=== PATIENT | male | born 1985 | race Caucasian/White ===

== ENCOUNTER 2021-02-06 17:28 | Inpatient (IN) | payer OTHER, SELFPAY ==
[2021-02-06] VITALS (9 sets, daily range): BP systolic 117–141; BP diastolic 77–82; PULSE 72–82; RESP 17–25; TEMP 36.7; O2SAT 92–97; BMI 32.8
--- NOTE | 2021-02-06 20:39 | RT ---
Paged by KELLY Cardoso for pt's arrival to room 231. Upon arrival, pt was on 10 LPM NRB and SpO2 98%, RR mid 20s. BS clear ANU, faint crackles in LLL, diminished RLL and RML. Pt's WOB is labored with exertion. Placed pt on 15 LPM HFNC, SpO2 92%-96%m RR still mid 20s, pt is tolerating change. Educated pt about deep breathing techniques and proning as much as possible. Instructed pt on how to use IS as well. Pt has no pulmonary hx, does not use MDIs/SVNs, does not use CPAP/BiPAP/O2 at home. Recommending O2 therapy as needed and set a SpO2 goal.
[2021-02-06 22:17] LABS: Add Manual Diff / Slide Review NO; Basophils Absolute Auto 0 /uL (0-100); Basophils Percent Auto 0.2 % (0-2); Eosinophils Absolute Auto 0 /uL (0-450); Hematocrit 42.6 % (41-53); Hemoglobin 15.3 g/dL (13.5-17.5); Lymphocytes Absolute Auto 500 /uL (1100-4500); Lymphocytes Percent Auto 5.3 % (25-40); Mean Corpuscular HGB Conc 35.8 % (30-36); Mean Corpuscular Hemoglobin 31.6 PG (26-34); Mean Corpuscular Volume 88.1 fL (80-100); Monocytes Absolute Auto 300 /uL (0-900); Monocytes Percent Auto 3.1 % (3-14); Neutrophils Absolute Auto 8300 /uL (1500-7000); Neutrophils Percent Auto 91.4 % (50-75); Platelet Count 227 X10^3/uL (150-400); Red Blood Cell Count 4.83 X10^6/uL (4.5-5.9); Red Cell Distribution Width 13.3 % (11.6-14.8); White Blood Cell Count 9.1 X10^3/uL (4.5-11.0)
[2021-02-06 22:29] LABS: Lactate Dehydrogenase 1920 U/L (313-618)
[2021-02-06 22:30] LABS: BUN Creatinine Ratio 14.3 (6-22); Blood Urea Nitrogen 15 mg/dL (9-20); Calcium 8.8 mg/dL (8.4-10.2); Carbon Dioxide 36 mmol/L (22-32); Chloride 92 mmol/L (98-107); Estimated Glomerular Filt Rate > 60.0 mL/min (>60); Glucose 134 mg/dL (70-100); HEMOLYSIS < 15 (0-50); Magnesium 2.8 mg/dL (1.6-2.3); Potassium 4.9 mmol/L (3.4-5.1); Sodium 134 mmol/L (137-145)
--- NOTE | 2021-02-06 22:42 | PC.NURSE ---
Addendum entered by Madeline Rock R.N. 02/07/21 06:22: 0600- Patient will have his bring in his medication for CML. Patient has proned during the night and has intermitted night sweats. Patient is cooperative with care. Will monitor. Original Note: 1914- Patient arrived via ambulance to room 231. Patient on 100% NRB. Saturations 92-95%. Patient respirations in the mid 20's. No distress noted at this time. Patient states he is intermittedly sweaty. Report of temperature at previous hospital. Patient oriented to the room, call light, bed controls and instructed to call for assist to the bathroom. Bed alarm engaged. Patient placed on 15 liters high flow per respiratory therapy. Will monitor closely.
[2021-02-07] VITALS (27 sets, daily range): BP systolic 114–135; BP diastolic 64–88; PULSE 59–84; RESP 0–39; TEMP 35.9–37; O2SAT 85–99
--- NOTE | 2021-02-07 00:05 | P.HP_ITS ---
History of Present Illness History of Present Illness Date Patient Seen: 02/06/21 Time Patient Seen: 21:00 Chief complaint: COVID + Narrative: Jeffrey Miranda is a 35 y.o. unvaccinated male with chronic lymphocytic leukemia is a direct transfer from [facility] for further management of COVID- 19 Pneumonia. He initially presented to their ED due to fatigue and a cough. Per the nursing notes from [facility], he has had symptoms since 01/27 and test ed positive on Sunday 02/04. He stated the exposure occurred when on of the in- home day care's children was positive for COVID1-19. All of his family tested positive for it and had mild symptoms. 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 He continues to have a sense of taste and smell, but has been nauseated and not eating much since being sick. Denies vomiting, dysuria, or constipation though did endorse having diarrhea to the ED staff at [facility]. He actually denies shortness of breath, just a cough and profound fatigue. States he is interested in the vaccine and is advised to obtain it once he tests negative. States takes Bosulif 400 mg po daily and stated to [facility] staff his CLL was in remission. At [facility], he presented with 76% on room air and was placed on a 15% non-rebreather mask. Due to an elevated D-dimer, he underwent CT angio scanning at [facility] of which PE was ruled out. Read also indicated mediastinal and hilar lymphadenopathy which could be reactive or neoplastic. Current vital signs are temperature 96.7?, blood pressure 127/82, heart rate 76, respiratory rate 16, oxygen saturation 96% on 15 L, he weighs 113 kg with a BMI of 32.8. CBC is unremarkable, is lymphopenic with a count of 500, sodium 134, chloride 92, bicarb 36, glucose 134, magnesium 2.8, lactate dehydrogenase is 1920, MRSA is negative. Patient History Medical History CLL (chronic lymphocytic leukemia) Family & Social History Family history unavailable: No (Great uncle with ALL, parents alive and well) Social History: household members spouse Prior Living Arrangements House Safety & Behavioral: Feels Safe in Current Yes Environment Been Physically Hurt or No Threatened By a Person Suicidal Ideation Description None Suicide Plan Description No Plan Tobacco & Substance use: Smoking Status Never smoker alcohol intake current alcohol intake frequency Beer once a week. Substance Use Type does not use Review of Systems Review of Systems ROS: Yes All systems reviewed with the patient and are negative except as oth erwise documented Exam Vital Signs (past 8 hours): - 02/06/21 19:15 02/06/21 19:44 02/06/21 21:00 Temperature 98.0 F Pulse Rate 82 79 Respiratory Rate 19 25 H Blood Pressure 141/82 H Pulse Oximetry 97 92 95 02/06/21 21:30 02/06/21 22:00 Temperature Pulse Rate 72 77 Respiratory Rate Blood Pressure 117/77 Pulse Oximetry 96 96 Oxygen Delivery Method High Flow Nasal Cannula Oxygen Flow Rate 15 Narrative Exam Narrative: Gen: Alert, oriented, well-developed 35 y.o. male, NAD HEENT: normocephalic, atraumatic, conjunctiva clear, sclera non-icteric, oral mucosa pink and moist Neck: supple, full ROM, no JVD, trachea is midline Resp: diminished lung sounds on the right, left lung CTA, tachypnic CV: RRR, no murmur or rubs Abd: soft, non-tender, normoactive BTs Skin: no lesions or rashes, dry and intact Neuro: Alert and oriented X 4 w/no focal deficits. Speech clear and coherent. Extremities: moves all 4 extremities, is ambulatory, negative Kimebrly?s sign Psyche: normal mood and affect. Objective Labs Result Diagrams: 02/06/21 21:44 02/06/21 21:44 Labs: Laboratory Results - last 24 hr 02/06/21 02/06/21 02/06/21 19:30 21:44 21:44 WBC 9.1 RBC 4.83 Hgb 15.3 Hct 42.6 MCV 88.1 MCH 31.6 MCHC 35.8 RDW 13.3 Plt Count 227 Neut % (Auto) 91.4 H Lymph % (Auto) 5.3 L [place] % (Auto) 3.1 Eos % (Auto) 0.0 L Baso % (Auto) 0.2 Neut # (Auto) 8300 H Lymph # (Auto) 500 L [place] # (Auto) 300 Eos # (Auto) 0 Baso # (Auto) 0 Sodium Cancelled Potassium Cancelled Chloride Cancelled Carbon Dioxide Cancelled BUN Cancelled Creatinine Cancelled Estimated GFR Cancelled BUN/Creatinine Ratio Cancelled Glucose Cancelled Calcium Cancelled Magnesium Cancelled Total Bilirubin Cancelled Conjugated Bilirubin Cancelled Unconjugated Bilirubin Cancelled AST Cancelled ALT Cancelled Alkaline Phosphatase Cancelled Lactate Dehydrogenase 1920 H C-Reactive Protein Cancelled Total Protein Cancelled Albumin Cancelled Globulin Cancelled Albumin/Globulin Ratio Cancelled Nasal Screen MRSA (PCR) Negative for mrsa 02/06/21 21:44 WBC RBC Hgb Hct MCV MCH MCHC RDW Plt Count Neut % (Auto) Lymph % (Auto) [place] % (Auto) Eos % (Auto) Baso % (Auto) Neut # (Auto) Lymph # (Auto) [place] # (Auto) Eos # (Auto) Baso # (Auto) Sodium 134 L Potassium 4.9 Chloride 92 L Carbon Dioxide 36 H BUN 15 Creatinine 1.05 Estimated GFR > 60.0 BUN/Creatinine Ratio 14.3 Glucose 134 H Calcium 8.8 Magnesium 2.8 H Total Bilirubin Conjugated Bilirubin Unconjugated Bilirubin AST ALT Alkaline Phosphatase Lactate Dehydrogenase C-Reactive Protein Total Protein Albumin Globulin Albumin/Globulin Ratio Nasal Screen MRSA (PCR) Assessment & Plan Assessment & Plan narrative: Jeffrey Miranda will be admitted for further treatment of COVID-19 pneumonia. Acute respiratory failure secondary COVID-19 pneumonia, present on admission * Which he was administered IV remdesivir and dexamethasone at [facility] * He will be continued on IV remdesivir and dexamethasone daily * RT to assess patient for oxygen needs Chronic lymphocytic leukemia, stated to be in remission * Continue home dose of Bosulif 400 mg po daily, to bring in in the am VTE Prophylaxis: Wells risk score 5.5 Enoxaparin 40 mg subQ once daily Bilateral SCDs Consider partial therapuetic anticoagulation Patient is admitted to the inpatient service due to the severity of disease, risks of further disease progression and this stay is expected to exceed 2 midnights. FEN: IV fluids: saline lock, diet: General, labs: CBC, C/BMP, liver enzymes, Mag, PT/INR Consultants None Dispo: probable discharge to home Code status: Full Code as discussed with the patient who identifies his as his surrogate and POA. [X] I have utilized all available immediate resources to obtain, update, or review of the patient's current medications COVID-19 COVID-19 status: Positive Result date/Date tested (Pos, Neg/Pending): 02/06/21 Scores Wells' Criteria for PE Clinical signs and symptoms of DVT: Yes PE is #1 Dx or equally likely: No Heart rate > 100: No Immobilization at least 3 days or surg in previous 4 weeks: Yes History of PE or DVT: No Hemoptysis: No Malignancy w/Treatment within 6 months or palliative: Yes Rober' PE Score total: 5.5 Quality VTE Deep Vein Thrombosis/Pulmonary Embolism Present on Admission: No MIPS - DC The patient has current or prior documentation of left ventricular ejection fraction (LVEF) less than 40%, or moderate or severely depressed left ventricular systolic function.: No
[2021-02-07 05:11] LABS: Add Manual Diff / Slide Review NO; Basophils Absolute Auto 100 /uL (0-100); Basophils Percent Auto 1.8 % (0-2); Eosinophils Absolute Auto 0 /uL (0-450); Hematocrit 43.5 % (41-53); Hemoglobin 15.4 g/dL (13.5-17.5); Lymphocytes Absolute Auto 400 /uL (1100-4500); Lymphocytes Percent Auto 5.8 % (25-40); Mean Corpuscular HGB Conc 35.4 % (30-36); Mean Corpuscular Hemoglobin 31.3 PG (26-34); Mean Corpuscular Volume 88.4 fL (80-100); Monocytes Absolute Auto 200 /uL (0-900); Monocytes Percent Auto 3.2 % (3-14); Neutrophils Absolute Auto 6400 /uL (1500-7000); Neutrophils Percent Auto 89.2 % (50-75); Platelet Count 244 X10^3/uL (150-400); Red Blood Cell Count 4.92 X10^6/uL (4.5-5.9); Red Cell Distribution Width 13.6 % (11.6-14.8); White Blood Cell Count 7.1 X10^3/uL (4.5-11.0)
[2021-02-07 05:15] LABS: BUN Creatinine Ratio 17.1 (6-22); Blood Urea Nitrogen 18 mg/dL (9-20); Calcium 8.9 mg/dL (8.4-10.2); Carbon Dioxide 36 mmol/L (22-32); Chloride 94 mmol/L (98-107); Creatine Kinase 1252 U/L (55-170); Estimated Glomerular Filt Rate > 60.0 mL/min (>60); Glucose 133 mg/dL (70-100); HEMOLYSIS 21 (0-50); Sodium 134 mmol/L (137-145)
[2021-02-07 05:16] LABS: Magnesium 2.9 mg/dL (1.6-2.3)
[2021-02-07 05:23] LABS: Potassium 5.2 mmol/L (3.4-5.1)
[2021-02-07 05:31] LABS: Alanine Aminotransferase 86 IU/L (<50); Albumin 3.5 g/dL (3.5-5.0); Albumin Globulin Ratio 1.1 (1.0-2.8); Alkaline Phosphatase 36 U/L (38-126); Aspartate Aminotransferase 100 IU/L (17-59); Bilirubin Total 0.8 mg/dL (0.2-1.3); Bilirubin Unconjugated 0.6 mg/dL (0.0-1.1); C-Reactive Protein Quant 5.5 mg/dL (<1.0); Globulin 3.1 g/dL (1.7-4.1); HEMOLYSIS < 15 (0-50); Lactate Dehydrogenase 1785 U/L (313-618); Total Protein 6.6 g/dL (6.3-8.2)
[2021-02-07] MEDS: ENOXAPARIN 40 MG/0.4 ML SYRINGE SUBCUT (08:32)
[2021-02-07] MEDS: DEXAMETHASONE 10 MG/ML VIAL 6 MG IV (08:32)
[2021-02-07] MEDS: REMDESIVIR 100 MG in SODIUM CHLORIDE 0.9% 230 ML 250 ML IV (09:42)
[2021-02-07] MEDS: BOSUTINIB 400 MG 400 EACH PO (10:45)
--- NOTE | 2021-02-07 14:41 | PM.PN.1 ---
Subjective Subjective Date Patient Seen: 02/07/21 Interval history: Patient is a 35 year on vaccinated male admitted to the hospital with acute respiratory failure due to COVID pneumonia. Patient remains hypoxic. He is on 15 L non-rebreather, with minimal activity he desaturates. When going to the bathroom E desaturated to 85%. When pronating his oxygen saturation improves. Patient reports diarrhea, no cough, no headache Exam Vital Signs (past 8 hours): - 02/07/21 07:30 02/07/21 07:58 02/07/21 08:05 Temperature 97.5 F L Pulse Rate 70 75 Respiratory Rate 24 21 Blood Pressure 124/88 Pulse Oximetry 98 94 94 02/07/21 09:53 02/07/21 11:50 02/07/21 13:40 Temperature 98.2 F Pulse Rate 84 75 Respiratory Rate 24 24 Blood Pressure 135/88 Pulse Oximetry 94 95 85 L 02/07/21 13:50 Temperature Pulse Rate Respiratory Rate Blood Pressure Pulse Oximetry 96 Oxygen Delivery Method High Flow Nasal Cannula Oxygen Flow Rate 15 Narrative Exam Narrative: Well-nourished well-developed male lying in bed Resp Other: Lungs decreased breath sounds otherwise clear to auscultation Cardio Other: Cardiac exam: Regular rate and rhythm normal S1-S2 GI Other: Abdomen: Soft nontender nondistended Extrem Other: Extremities: No edema Objective Labs Result Diagrams: 02/07/21 04:46 02/07/21 04:46 Labs: Laboratory Results - last 24 hr 02/06/21 02/06/21 02/06/21 19:30 21:44 21:44 WBC 9.1 RBC 4.83 Hgb 15.3 Hct 42.6 MCV 88.1 MCH 31.6 MCHC 35.8 RDW 13.3 Plt Count 227 Neut % (Auto) 91.4 H Lymph % (Auto) 5.3 L [place] % (Auto) 3.1 Eos % (Auto) 0.0 L Baso % (Auto) 0.2 Neut # (Auto) 8300 H Lymph # (Auto) 500 L [place] # (Auto) 300 Eos # (Auto) 0 Baso # (Auto) 0 Sodium Cancelled Potassium Cancelled Chloride Cancelled Carbon Dioxide Cancelled BUN Cancelled Creatinine Cancelled Estimated GFR Cancelled BUN/Creatinine Ratio Cancelled Glucose Cancelled Calcium Cancelled Magnesium Cancelled Total Bilirubin Cancelled Conjugated Bilirubin Cancelled Unconjugated Bilirubin Cancelled AST Cancelled ALT Cancelled Alkaline Phosphatase Cancelled Lactate Dehydrogenase 1920 H Total Creatine Kinase C-Reactive Protein Cancelled Total Protein Cancelled Albumin Cancelled Globulin Cancelled Albumin/Globulin Ratio Cancelled Nasal Screen MRSA (PCR) Negative for mrsa 02/06/21 02/07/21 02/07/21 21:44 04:46 04:46 WBC 7.1 RBC 4.92 Hgb 15.4 Hct 43.5 MCV 88.4 MCH 31.3 MCHC 35.4 RDW 13.6 Plt Count 244 Neut % (Auto) 89.2 H Lymph % (Auto) 5.8 L [place] % (Auto) 3.2 Eos % (Auto) 0.0 L Baso % (Auto) 1.8 Neut # (Auto) 6400 Lymph # (Auto) 400 L [place] # (Auto) 200 Eos # (Auto) 0 Baso # (Auto) 100 Sodium 134 L Potassium 4.9 Chloride 92 L Carbon Dioxide 36 H BUN 15 Creatinine 1.05 Estimated GFR > 60.0 BUN/Creatinine Ratio 14.3 Glucose 134 H Calcium 8.8 Magnesium 2.8 H Total Bilirubin Conjugated Bilirubin Unconjugated Bilirubin AST ALT Alkaline Phosphatase Lactate Dehydrogenase Total Creatine Kinase 1252 H C-Reactive Protein Total Protein Albumin Globulin Albumin/Globulin Ratio Nasal Screen MRSA (PCR) 02/07/21 02/07/21 02/07/21 04:46 04:46 04:46 WBC RBC Hgb Hct MCV MCH MCHC RDW Plt Count Neut % (Auto) Lymph % (Auto) [place] % (Auto) Eos % (Auto) Baso % (Auto) Neut # (Auto) Lymph # (Auto) [place] # (Auto) Eos # (Auto) Baso # (Auto) Sodium 134 L Potassium 5.2 H Chloride 94 L Carbon Dioxide 36 H BUN 18 Creatinine 1.05 Estimated GFR > 60.0 BUN/Creatinine Ratio 17.1 Glucose 133 H Calcium 8.9 Magnesium 2.9 H Total Bilirubin 0.8 Conjugated Bilirubin 0.0 Unconjugated Bilirubin 0.6 AST 100 H ALT 86 H Alkaline Phosphatase 36 L Lactate Dehydrogenase 1785 H Total Creatine Kinase C-Reactive Protein 5.5 H Total Protein 6.6 Albumin 3.5 Globulin 3.1 Albumin/Globulin Ratio 1.1 Nasal Screen MRSA (PCR) [facility] Medical History CLL (chronic lymphocytic leukemia) Social History household members: spouse Smoking Status: Never smoker alcohol intake: current Assessment & Plan Assessment & Plan narrative: 1. 35-year-old male admitted to the hospital with COVID pneumonia, and acute hypoxicrespiratory failure -continue 15 L of oxygen to maintain O2 sat greater than 88% -consider Del Angel catheter as patient desaturates with minimal activity -continue Decadron and remdesivir -continue DVT prophylaxis 2. Chronic myelogenous leukemia -continue bosutinib I have utilized all available [place] to review update and confirm the patient's current medications Time Spent With Patient Critical Care time: I spent a total of [] minutes of critical care time on this patient's care today; this time is exclusive of procedural time. Quality VTE Deep Vein Thrombosis/Pulmonary Embolism Present on Admission: No
[2021-02-07] MEDS: ACETAMINOPHEN 325 MG TABLET 650 MG PO (21:36)
[2021-02-07] MEDS: SODIUM CHLORIDE 0.9% FLUSH 10 ML IV (21:37)
[2021-02-08] VITALS (10 sets, daily range): BP systolic 115–159; BP diastolic 59–75; PULSE 59–86; RESP 13–23; TEMP 36.1–37.1; O2SAT 91–97
[2021-02-08 04:48] LABS: Add Manual Diff / Slide Review NO; Basophils Absolute Auto 0 /uL (0-100); Basophils Percent Auto 0.2 % (0-2); Eosinophils Absolute Auto 0 /uL (0-450); Eosinophils Percent Auto 0.3 % (2-4); Hemoglobin 14.7 g/dL (13.5-17.5); Lymphocytes Absolute Auto 800 /uL (1100-4500); Lymphocytes Percent Auto 7.1 % (25-40); Mean Corpuscular Volume 88.7 fL (80-100); Monocytes Absolute Auto 600 /uL (0-900); Monocytes Percent Auto 5.6 % (3-14); Neutrophils Absolute Auto 10000 /uL (1500-7000); Neutrophils Percent Auto 86.8 % (50-75); Platelet Count 294 X10^3/uL (150-400); Red Blood Cell Count 4.74 X10^6/uL (4.5-5.9); Red Cell Distribution Width 13.4 % (11.6-14.8); White Blood Cell Count 11.5 X10^3/uL (4.5-11.0)
[2021-02-08 04:52] LABS: Magnesium 2.7 mg/dL (1.6-2.3)
[2021-02-08 04:58] LABS: Alanine Aminotransferase 72 IU/L (<50); Albumin 3.6 g/dL (3.5-5.0); Albumin Globulin Ratio 1.2 (1.0-2.8); Alkaline Phosphatase 34 U/L (38-126); Aspartate Aminotransferase 67 IU/L (17-59); Bilirubin Total 0.7 mg/dL (0.2-1.3); Bilirubin Unconjugated 0.6 mg/dL (0.0-1.1); C-Reactive Protein Quant 2.5 mg/dL (<1.0); Globulin 3.1 g/dL (1.7-4.1); HEMOLYSIS < 15 (0-50); Lactate Dehydrogenase 1244 U/L (313-618); Total Protein 6.7 g/dL (6.3-8.2)
[2021-02-08] MEDS: BOSUTINIB 400 MG 400 EACH PO (08:29)
[2021-02-08] MEDS: ENOXAPARIN 40 MG/0.4 ML SYRINGE SUBCUT (08:30)
[2021-02-08] MEDS: SODIUM CHLORIDE 0.9% FLUSH 10 ML IV ×2 (08:30→21:48)
[2021-02-08] MEDS: REMDESIVIR 100 MG in SODIUM CHLORIDE 0.9% 230 ML 250 ML IV (08:30)
[2021-02-08] MEDS: DEXAMETHASONE 10 MG/ML VIAL 6 MG IV (08:30)
--- NOTE | 2021-02-08 17:13 | PM.PN.1 ---
Subjective Subjective Date Patient Seen: 02/08/21 Interval history: 35-year-old male admitted to the hospital with acute hypoxic respiratory failure secondary to COVID pneumonia. Overall he feels significantly improved today. His oxygen has been weaned down to 7 L nasal cannula and he is maintaining a saturation of 91-93%. He denies any cough. Has no other complaints Exam Vital Signs (past 8 hours): - 02/08/21 11:00 02/08/21 14:15 02/08/21 16:43 Temperature 98.2 F Pulse Rate 86 Respiratory Rate 23 Blood Pressure 123/70 Pulse Oximetry 97 96 93 Oxygen Delivery Method High Flow Nasal Cannula Oxygen Flow Rate 7 Narrative Exam Narrative: Pleasant gentleman sitting in a chair in no obvious distress Resp Other: Lungs: Decreased breath sounds with scattered rhonchi Cardio Other: Cardiac exam: Regular rate and rhythm normal S1-S2 GI Other: Abdomen: Soft nontender Extrem Other: Extremities: No edema Objective Labs Result Diagrams: 02/08/21 04:29 02/07/21 04:46 Labs: Laboratory Results - last 24 hr 02/08/21 02/08/21 02/08/21 04:29 04:29 04:29 WBC 11.5 H D RBC 4.74 Hgb 14.7 Hct 42.0 MCV 88.7 MCH 31.0 MCHC 35.0 RDW 13.4 Plt Count 294 Neut % (Auto) 86.8 H Lymph % (Auto) 7.1 L [place] % (Auto) 5.6 Eos % (Auto) 0.3 L Baso % (Auto) 0.2 Neut # (Auto) 03237 H Lymph # (Auto) 800 L [place] # (Auto) 600 Eos # (Auto) 0 Baso # (Auto) 0 Magnesium 2.7 H Total Bilirubin 0.7 Conjugated Bilirubin 0.0 Unconjugated Bilirubin 0.6 AST 67 H ALT 72 H Alkaline Phosphatase 34 L Lactate Dehydrogenase 1244 H C-Reactive Protein 2.5 H Total Protein 6.7 Albumin 3.6 Globulin 3.1 Albumin/Globulin Ratio 1.2 [facility] Medical History CLL (chronic lymphocytic leukemia) Social History household members: spouse Smoking Status: Never smoker alcohol intake: current Assessment & Plan Assessment & Plan narrative: 35-year-old male admitted to the hospital with COVID pneumonia, and acute hypoxicrespiratory failure -continue 7 of oxygen to maintain O2 sat greater than 88% -consider Del Angel catheter as patient desaturates with minimal activity -continue Decadron and remdesivir -continue DVT prophylaxis patient continues to make significant progress -continue 5 days of remdesivir, and Decadron, hopefully the patient's oxygen been tapered down, home when O2 oxygen saturation 88% on less than 4 L or room air whichever comes 1st -2. Chronic myelogenous leukemia -continue bosutinib Lovenox for DVT prophylaxis Time Spent With Patient Critical Care time: I spent a total of [] minutes of critical care time on this patient's care today; this time is exclusive of procedural time. Quality VTE Deep Vein Thrombosis/Pulmonary Embolism Present on Admission: No
[2021-02-09] VITALS (10 sets, daily range): BP systolic 123–135; BP diastolic 58–84; PULSE 76–93; RESP 15–33; TEMP 36.1–37.4; O2SAT 92–96
[2021-02-09 05:29] LABS: Alanine Aminotransferase 65 IU/L (<50); Albumin 3.7 g/dL (3.5-5.0); Albumin Globulin Ratio 1.1 (1.0-2.8); Alkaline Phosphatase 34 U/L (38-126); Aspartate Aminotransferase 59 IU/L (17-59); BUN Creatinine Ratio 19.6 (6-22); Bilirubin Total 0.8 mg/dL (0.2-1.3); Blood Urea Nitrogen 20 mg/dL (9-20); Calcium 8.8 mg/dL (8.4-10.2); Carbon Dioxide 34 mmol/L (22-32); Chloride 97 mmol/L (98-107); Estimated Glomerular Filt Rate > 60.0 mL/min (>60); Globulin 3.5 g/dL (1.7-4.1); Glucose 100 mg/dL (70-100); HEMOLYSIS 16 (0-50); Potassium 4.3 mmol/L (3.4-5.1); Sodium 137 mmol/L (137-145); Total Protein 7.2 g/dL (6.3-8.2)
[2021-02-09 05:39] LABS: Add Manual Diff / Slide Review NO; Basophils Absolute Auto 0 /uL (0-100); Basophils Percent Auto 0.1 % (0-2); Eosinophils Absolute Auto 300 /uL (0-450); Hematocrit 43.6 % (41-53); Hemoglobin 15.3 g/dL (13.5-17.5); Lymphocytes Absolute Auto 900 /uL (1100-4500); Mean Corpuscular HGB Conc 35.1 % (30-36); Mean Corpuscular Hemoglobin 31.2 PG (26-34); Mean Corpuscular Volume 88.8 fL (80-100); Monocytes Absolute Auto 600 /uL (0-900); Monocytes Percent Auto 4.5 % (3-14); Neutrophils Absolute Auto 11400 /uL (1500-7000); Neutrophils Percent Auto 86.4 % (50-75); Platelet Count 343 X10^3/uL (150-400); Red Blood Cell Count 4.91 X10^6/uL (4.5-5.9); Red Cell Distribution Width 13.7 % (11.6-14.8); White Blood Cell Count 13.2 X10^3/uL (4.5-11.0)
[2021-02-09] MEDS: REMDESIVIR 100 MG in SODIUM CHLORIDE 0.9% 230 ML 250 ML IV (09:43)
[2021-02-09] MEDS: ENOXAPARIN 40 MG/0.4 ML SYRINGE SUBCUT (09:44)
[2021-02-09] MEDS: ACETAMINOPHEN 325 MG TABLET 650 MG PO (09:44)
[2021-02-09] MEDS: DEXAMETHASONE 10 MG/ML VIAL 6 MG IV (09:44)
[2021-02-09] MEDS: SODIUM CHLORIDE 0.9% FLUSH 10 ML IV ×2 (09:45→20:59)
[2021-02-09] MEDS: BOSUTINIB 400 MG 400 EACH PO (09:46)
--- NOTE | 2021-02-09 15:16 | CM.IDA ---
Discharge Planning/Care Management CM Discharge Assessment Start: 02/09/21 15:14 Freq: Status: Active Protocol: Document 02/09/21 15:14 ANNMARIE (Rec: 02/09/21 15:16 ANNMARIE [id number]) Discharge Planning Assessment Assigned Career Technology Teacher ROSE Gongora DPOA/Assigned Designee Name Macy Miranda, spouse Jurgen Contact Information [phone] Advance Directives? No History Provided By Patient,Medical Record Prior Living Arrangements House Household Members spouse,children Type of transporation used prior to Drives own vehicle admit Independent with ADL's Yes Is patient alert and oriented? Yes Barriers to Discharge No Comment Patient plans to return home w /family. Family also COVID+ and doing well at this time. 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
--- NOTE | 2021-02-09 18:11 | P.PN_ITS ---
Subjective Subjective Interval history: Patient denies any significant improvement in his breathing since admission. He reports it's been steady. He does endorse worsening SOB with ambulation. Reports good PO intake. Denies any other acute, active problems. Exam Vital Signs (past 8 hours): - 02/09/21 11:35 02/09/21 12:00 Temperature 99.3 F 98.7 F Pulse Rate 88 Respiratory Rate 15 Blood Pressure 126/75 Pulse Oximetry 92 Oxygen Delivery Method High Flow Nasal Cannula Oxygen Flow Rate 7 Const Other: Patient laying on left side in the bed upon my entering the room, in no apparent acute distress. Eyes Other: No scleral icterus appreciated. Neck Other: No carotid bruits appreciated. Resp Other: Bibasilar coarse breath sounds appreciated. No wheezing noted. Cardio Other: Regular rate and rhythm, with S1 and S2 heart sounds auscultated, and no extra heart sounds or murmurs heard. GI Other: Soft, non-tender, non-distended, bowel sounds present. Extrem Other: Palpable and equal bilateral radial and dorsalis pedis pulses. Objective Labs Result Diagrams: 02/09/21 05:05 02/09/21 05:05 Labs: Laboratory Results - last 24 hr 02/09/21 02/09/21 05:05 05:05 WBC 13.2 H RBC 4.91 Hgb 15.3 Hct 43.6 MCV 88.8 MCH 31.2 MCHC 35.1 RDW 13.7 Plt Count 343 Neut % (Auto) 86.4 H Lymph % (Auto) 7.0 L [place] % (Auto) 4.5 Eos % (Auto) 2.0 Baso % (Auto) 0.1 Neut # (Auto) 05188 H Lymph # (Auto) 900 L [place] # (Auto) 600 Eos # (Auto) 300 Baso # (Auto) 0 Sodium 137 Potassium 4.3 Chloride 97 L Carbon Dioxide 34 H BUN 20 Creatinine 1.02 Estimated GFR > 60.0 BUN/Creatinine Ratio 19.6 Glucose 100 Calcium 8.8 Total Bilirubin 0.8 AST 59 ALT 65 H Alkaline Phosphatase 34 L Total Protein 7.2 Albumin 3.7 Globulin 3.5 Albumin/Globulin Ratio 1.1 PFSH Medical History CLL (chronic lymphocytic leukemia) Social History household members: spouse and children Smoking Status: Never smoker alcohol intake: current Assessment & Plan Assessment & Plan narrative: 35-year-old male admitted to the hospital with acute hypoxic respiratory failure secondary to COVID-19 pneumonia: 1. Acute hypoxic respiratory failure secondary to COVID-19 pneumonia -continue 7-10 liters of oxygen to maintain O2 sat greater than 88% -continue Decadron and remdesivir -continue DVT prophylaxis? -continue 5 days of remdesivir, and Decadron, hopefully the patient's oxygen been tapered down, home when O2 oxygen saturation 88% on less than 4 L or room air whichever comes 1st 2. Chronic myelogenous leukemia -continue bosutinib VTE prophylaxis: Lovenox 40 mg daily Time Spent With Patient Critical Care time: I spent a total of [] minutes of critical care time on this patient's care today; this time is exclusive of procedural time. Quality VTE Deep Vein Thrombosis/Pulmonary Embolism Present on Admission: No
[2021-02-10] VITALS: BP 134/61; PULSE 68; RESP 19; TEMP 36.4; O2SAT 93
[2021-02-10 03:00] VITALS: O2SAT 98
[2021-02-10 03:24] VITALS: O2SAT 96
[2021-02-10 04:00] VITALS: BP 124/82; PULSE 84; RESP 18; TEMP 36.6; O2SAT 96
[2021-02-10 08:00] VITALS: BP 124/77; PULSE 97; RESP 17; TEMP 36.6; O2SAT 89
[2021-02-10] MEDS: BOSUTINIB 400 MG 400 EACH PO (09:55)
[2021-02-10] MEDS: SODIUM CHLORIDE 0.9% FLUSH 10 ML IV (09:55)
[2021-02-10] MEDS: DEXAMETHASONE 10 MG/ML VIAL 6 MG IV (09:56)
[2021-02-10] MEDS: REMDESIVIR 100 MG in SODIUM CHLORIDE 0.9% 230 ML 250 ML IV (09:56)
[2021-02-10] MEDS: ENOXAPARIN 40 MG/0.4 ML SYRINGE SUBCUT (09:57)
--- NOTE | 2021-02-10 11:15 | PC.NURSE ---
Addendum entered by Jesenia Adams R.N. 02/10/21 15:12: pt discharged to home with home o2 and reviewed plan for post hospitalization - pt pleased to go home all questions answered to his satisfaction Original Note: PT UP IN CHAIR AND ABOUT IN ROOM WITH BRP ETC. HE IS MAINTAINING HIS SATURATIONS ON 3L O2 WITH RESTING SPO2 90-94% HE WILL DESAT TO MID 80'S WITH ACTIVITY BUT WILL COME BACK UP WITHIN 3-4 MINUTES - ORDERS RECEIVED TO TEST FOR HOME O2 NEEDS AND PT WILL POTENTIALLY DISCHARGE TO HOME
[2021-02-10 12:00] VITALS: PULSE 93; RESP 18; O2SAT 93
--- NOTE | 2021-02-10 14:15 | PM.PN.1 ---
Subjective Subjective Interval history: Patient reports feeling better today. He reports improving SOB, even with activity. Will plan for home RT oxygen evaluation for the patient, and can likely be discharged home if results of the evaluation are favorable. Exam Vital Signs (past 8 hours): - 02/10/21 08:00 02/10/21 12:00 Temperature 97.8 F Pulse Rate 97 H 93 H Respiratory Rate 17 18 Blood Pressure 124/77 Pulse Oximetry 89 L 93 Oxygen Delivery Method Nasal Cannula Oxygen Flow Rate 3 Narrative Exam Narrative: Const Other: Patient sitting up in the bed upon my entering the room, in no apparent acute distress. Eyes Other: No scleral icterus appreciated. Neck Other: No carotid bruits appreciated. Resp Other: Bibasilar coarse breath sounds appreciated. No wheezing noted. Cardio Other: Regular rate and rhythm, with S1 and S2 heart sounds auscultated, and no extra heart sounds or murmurs heard. GI Other: Soft, non-tender, non-distended, bowel sounds present. Extrem Other: Palpable and equal bilateral radial and dorsalis pedis pulses. Objective Labs Result Diagrams: 02/09/21 05:05 02/09/21 05:05 [facility] Medical History CLL (chronic lymphocytic leukemia) Social History household members: spouse and children Smoking Status: Never smoker alcohol intake: current Assessment & Plan Assessment & Plan narrative: 35-year-old male admitted to the hospital with acute hypoxic respiratory failure secondary to COVID-19 pneumonia: 1. Acute hypoxic respiratory failure secondary to COVID-19 pneumonia -continue 3-5 liters of oxygen to maintain O2 sat greater than 88% -continue Decadron and remdesivir -continue DVT prophylaxis? -continue 5 days of remdesivir, and Decadron, and if home RT oxygen evaluation is favorable today, can discharge home 2. Chronic myelogenous leukemia -continue bosutinib VTE prophylaxis: Lovenox 40 mg daily Time Spent With Patient Critical Care time: I spent a total of [] minutes of critical care time on this patient's care today; this time is exclusive of procedural time. Quality VTE Deep Vein Thrombosis/Pulmonary Embolism Present on Admission: No
--- NOTE | 2021-02-10 14:19 | P.DS_ITS ---
History of Present Illness History of Present Illness Chief complaint: COVID+ Narrative: Jeffrey Miranda is a 35 y.o. unvaccinated male with chronic lymphocytic leukemia is a direct transfer from [facility] for further management of COVID- 19 Pneumonia. He initially presented to their ED due to fatigue and a cough. Per the nursing notes from [place], he has had symptoms since 01/27 and tested positive on Sunday 02/04. He stated the exposure occurred when on of the in-home day care's children was positive for COVID1-19. All of his family tested positive for it and had mild symptoms. 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 He continues to have a sense of taste and smell, but has been nauseated and not eating much since being sick. Denies vomiting, dysuria, or constipation though did endorse having diarrhea to the ED staff at [facility].? He actually denies shortness of breath, just a cough and profound fatigue. States he is interested in the vaccine and is advised to obtain it once he tests negative. States takes Bosulif 400 mg po daily and stated to [facility] staff his CLL was in remission. At [facility], he presented with 76% on room air and was placed on a 15% non-rebreather mask. Due to an elevated D-dimer, he underwent CT angio scanning at [facility] of which PE was ruled out. Read also indicated mediastinal and hilar lymphadenopathy which could be reactive or neoplastic.? Current vital signs are temperature 96.7?, blood pressure 127/82, heart rate 76, respiratory rate 16, oxygen saturation 96% on 15 L, he weighs 113 kg with a BMI of 32.8.? CBC is unremarkable, is lymphopenic with a count of 500, sodium 134, chloride 92, bicarb 36, glucose 134, magnesium 2.8, lactate dehydrogenase is 1920, MRSA is negative. Discharge Providers Provider Date of admission: 02/06/21 17:28 Discharge Date: 02/10/21 Discharge provider: Freida Fu MD Summary Hospital Course Discharge Diagnosis: 35-year-old male admitted to the hospital with acute hypoxic respiratory failure secondary to COVID-19 pneumonia: 1. Acute hypoxic respiratory failure secondary to COVID-19 pneumonia -patient showed improvement on dexamethasone and remdesivir -home RT oxygen evaluation revealed that he requires 3 liters of supplemental oxygen at rest, and 4-5 liters of supplemental oxygen with activity -therefore, will discharge home with prescription for PO dexamethasone 6 mg once daily for 6 more days, to complete a total 10-day course 2. Chronic myelogenous leukemia -continue bosutinib Hospital Course: 35yo male with a hx of CML on chronic bosutinib therapy that presented with acute hypoxic respiratory failure secondary to COVID-19 pneumonia. He improved inpatient on dexamethasone and remdesivir. He required 7-10 liters of supplem ental oxygen at rest on admission. On the day of discharge, home RT oxygen evaluation revealed he was saturating 93% on 3 liters supplemental oxygen, and 90% on 4-5 liters of supplemental oxygen with activity. As patient's respiratory status improved, he was feeling well, and the home RT oxygen evaluation was favorable, patient was discharged on PO dexamethasone 6 mg once daily to take for 6 more days, to complete a total 10-day course, with close PCP follow-up. Exam Vital Signs (past 8 hours): - 02/10/21 08:00 02/10/21 12:00 Temperature 97.8 F Pulse Rate 97 H 93 H Respiratory Rate 17 18 Blood Pressure 124/77 Pulse Oximetry 89 L 93 Oxygen Delivery Method Nasal Cannula Oxygen Flow Rate 3 Narrative Exam Narrative: Const Other: Patient sitting up in the bed upon my entering the room, in no apparent acute distress. Eyes Other: No scleral icterus appreciated. Neck Other: No carotid bruits appreciated. Resp Other: Bibasilar coarse breath sounds appreciated. No wheezing noted. Cardio Other: Regular rate and rhythm, with S1 and S2 heart sounds auscultated, and no extra heart sounds or murmurs heard. GI Other: Soft, non-tender, non-distended, bowel sounds present. Extrem Other: Palpable and equal bilateral radial and dorsalis pedis pulses. Objective Labs Result Diagrams: 02/09/21 05:05 02/09/21 05:05 [facility] Medical History CLL (chronic lymphocytic leukemia) Social History household members: spouse and children Smoking Status: Never smoker alcohol intake: current Discharge Assessment & Plan Assessment and Plan Assessment: 35-year-old male admitted to the hospital with acute hypoxic respiratory failure secondary to COVID-19 pneumonia: 1. Acute hypoxic respiratory failure secondary to COVID-19 pneumonia -patient showed improvement on dexamethasone and remdesivir -home RT oxygen evaluation revealed that he requires 3 liters of supplemental oxygen at rest, and 4-5 liters of supplemental oxygen with activity -therefore, will discharge home with prescription for PO dexamethasone 6 mg once daily for 6 more days, to complete a total 10-day course 2. Chronic myelogenous leukemia -continue bosutinib Plan of Treatment: 35-year-old male admitted to the hospital with acute hypoxic respiratory failure secondary to COVID-19 pneumonia: 1. Acute hypoxic respiratory failure secondary to COVID-19 pneumonia -patient showed improvement on dexamethasone and remdesivir -home RT oxygen evaluation revealed that he requires 3 liters of supplemental oxygen at rest, and 4-5 liters of supplemental oxygen with activity -therefore, will discharge home with prescription for PO dexamethasone 6 mg once daily for 6 more days, to complete a total 10-day course 2. Chronic myelogenous leukemia -continue bosutinib Discharge Plan Discharge Plan Patient Disposition: Home Discharge orders & Medications Prescriptions: Continued Bosulif 400 mg tablet 400 mg PO DAILY 0RF Diet/Activity/Treatments Diet: Regular Activity: as tolerated Oxygen: 02 @ 3L AND CAN TURN UP TO 5L DURING ACTIVITY Quality VTE Deep Vein Thrombosis/Pulmonary Embolism Present on Admission: No
== END 2021-02-10 14:45 | disposition home or self-care (01) | DRG 177 ==
PROVIDERS: Nurse Practitioner Family; Admitting Provider Internal Medicine; Referring Provider Internal Medicine; Visit Provider Internal Medicine
DX: U07.1 COVID-19 (principal); J12.82 Pneumonia due to coronavirus disease 2019; J96.01 Acute respiratory failure with hypoxia; C92.10 Chronic myeloid leukemia, BCR/ABL-positive, not having achieved remission
CPT/HCPCS: 36415; 80048; 80053; 80076; 82550; 83615; 83735; 85025; 86140; 87797; 94618; 94762; J1100; J1650